=== PATIENT | female | born 1965 | race Native Hawaiian/Other Pacific Islander ===

== ENCOUNTER 2016-08-19 11:05 | Emergency (ER) | payer OTHER ==
[~2016-08-19] VITALS: Ht 167.6 cm; Wt 142.0 kg
[2016-08-19] MEDS ORDERED: CARDURA1 MG PO (11:31)
[2016-08-19] MEDS ORDERED: AMLO2.5T PO (11:32)
[2016-08-19] MEDS ORDERED: WAL-PROFEN200 M1 OR (11:33)
[2016-08-19] MEDS ORDERED: PAROXETINE30 MG OR (11:34)
[2016-08-19] MEDS ORDERED: DRAMAMINE50 M1 OR (11:35)
[2016-08-19] MEDS ORDERED: METO10IN2 INJ (11:36)
[2016-08-19] MEDS ORDERED: ROPINIROLE1 MG OR (11:36)
[2016-08-19 12:31] LABS: PLATELET COUNT 173 K/uL (152-353)
[2016-08-19 12:53] LABS: POTASSIUM 3.2 mmol/L (3.6-5.2)
== END 2016-08-19 15:39 | disposition home or self-care (01) ==
LOC: ED 11:05
DX: R51 Headache (principal); R06.00 Dyspnea, unspecified
CPT/HCPCS: 36600; 80048; 82805; 83880; 85027; 85379; 96372; 99284; J1650; J1885; J2405; Q9963